=== PATIENT | male | born 1960 | race Two or more races ===

== ENCOUNTER 2019-10-29 17:45 | Emergency (ER) | payer BC ==
[~2019-10-29] VITALS: Ht 175.3 cm; Wt 90.7 kg
[2019-10-29 17:47] VITALS: Ht 175.3 cm; Wt 90.7 kg
[2019-10-29 18:50] VITALS: BP 147/87
== END 2019-10-29 19:05 | disposition home or self-care (01) ==
LOC: ED 17:45
DX: U07.1 COVID-19 (principal); R07.89 Other chest pain; E11.9 Type 2 diabetes mellitus without complications; E78.00 Pure hypercholesterolemia, unspecified
CPT/HCPCS: Q0092